=== PATIENT | male | born 1990 | race Two or more races ===

== ENCOUNTER 2022-03-28 03:18 | Emergency (ER) | payer OTHER ==
[~2022-03-28] VITALS: Ht 172.7 cm; Wt 86.2 kg
--- NOTE | 2022-03-28 03:40 | NUR ---
TO ER BED 2. BIBSELF C/O LLQ PAIN STARTED AND URINARY HESITANCY X TODAY. TOOK IBUPROFEN WITH LITTLE RELIEF. CHANGED INTO GOWN. CONNECTED TO MONITOR. AWAITING EVAL.
--- NOTE | 2022-03-28 03:45 | NUR ---
URINE SAMPLE COLLECTED AND SENT TO LAB
[2022-03-28] MEDS ORDERED: ONDANSETRON HCL/PF 4 MG/2 ML VIAL IVP ONE (04:00)
[2022-03-28] MEDS ORDERED: IV NS 0.9% 1,000 ML BAG IV ONE (04:00)
[2022-03-28] MEDS ORDERED: MORPHINE SULFATE INJ 2 MG/ML DISP.SYRIN IV ONE ×3 (04:00→11:00)
[2022-03-28] MEDS ORDERED: ONDANSETRON HCL/PF 4 MG/2 ML VIAL ONE (04:05)
[2022-03-28] MEDS ORDERED: MORPHINE SULFATE INJ 4 MG/ML DISP.SYRIN ONE ×3 (04:05→10:47)
--- NOTE | 2022-03-28 04:22 | NUR ---
IV LINE ESTABLISHED, IV LAC 18G. BLOOD COLLECTED AND SENT TO LAB
[2022-03-28 04:29] LABS: BILIRUBIN,URINE NEGATIVE (NEGATIVE); COLOR,URINE YELLOW (YELLOW); LEUKOCYTE ESTERASE ,URINE TRACE (NEGATIVE); NITRITE, URINE NEGATIVE (NEGATIVE); PH,URINE 5.5 (5.0-8.0); PROTEIN,URINE NEGATIVE (NEGATIVE); UGLUCOSE NEGATIVE (NEGATIVE); UROBILINOGEN,URINE 0.2 EU/dL (0.2)
[2022-03-28 05:08] LABS: BASOPHILS # (AUTO) 0.1 K/uL (0.0-0.2); BASOPHILS % (AUTO) 0.4 % (0.0-2.0); EOSINOPHILS % (AUTO) 1.4 % (0.0-6.0); HEMATOCRIT 41 % (39-51); HEMOGLOBIN 13.5 g/dL (13.5-17.5); LYMPHOCYTES # (AUTO) 2.2 K/uL (0.8-4.8); LYMPHOCYTES % (AUTO) 14.5 % (20.0-44.0); MEAN CORPUSCULAR HGB CONC 33 g/dl (31.0-36.0); MEAN CORPUSCULAR VOLUME 86 fL (80-96); MONOCYTES # (AUTO) 1.7 K/uL (0.1-1.30); MONOCYTES % (AUTO) 10.9 % (2.0-12.0); NEUTROPHILS # (AUTO) 11.2 K/uL (1.8-8.9); NEUTROPHILS % (AUTO) 72.8 % (43.0-81.0); PLATELET COUNT (AUTO) 441 K/uL (150-450); RED BLOOD CELL COUNT(AUTO) 4.74 MIL/uL (4.5-6.0); WHITE BLOOD COUNT (AUTO) 15.3 K/uL (4.3-11.0)
[2022-03-28 05:32] LABS: CALCIUM, SERUM 8.5 mg/dL (8.5-10.1); CREATININE 0.9 mg/dL (0.6-1.3); POTASSIUM 3.8 mmol/L (3.5-5.1)
[2022-03-28 05:39] LABS: ALBUMIN 2.8 g/dL (3.4-5.0); BILIRUBIN,TOTAL 0.2 mg/dL (0.2-1.0)
--- NOTE | 2022-03-28 06:51 | NUR ---
COVID ANTIGEN SWAB COLLECTED AND SENT TO LAB
[2022-03-28] MEDS ORDERED: PIPERACILLIN /TAZOBACTAM 3.375 G VIAL IV ONE (06:55)
[2022-03-28] MEDS ORDERED: CIPR500T5 PO (06:56)
[2022-03-28] MEDS ORDERED: PIPERACILLIN /TAZOBACTAM 3.375 G in IV D5W 50 ML IV ONE (07:00)
--- NOTE | 2022-03-28 07:12 | NUR ---
PT AMBULATED TO BATHROOM, STEADY GAIT NOTED.
--- NOTE | 2022-03-28 07:24 | NUR ---
Receved pt from tereza rn pt vandana respiration spont aand easy no pain
--- NOTE | 2022-03-28 08:06 | NUR ---
beth for telemetry bed no abdominale pain
[2022-03-28] MEDS ORDERED: METR-147 PO (08:25)
[2022-03-28 09:03] LABS: BACTERIA,URINE Moderate /HPF (None Seen); SQUAMOUS EPITHELIAL CELL,UR None Seen /HPF (None Seen); WBC,URINE 0-2 /HPF (0-3)
--- NOTE | 2022-03-28 09:20 | NUR ---
wating for Telmetery bed resting at this time
--- NOTE | 2022-03-28 10:38 | NUR ---
PT condition stable no n/v c/o lower back pain 06/25 DR. Kern aware
--- NOTE | 2022-03-28 11:18 | NUR ---
Luis davis in [facility] - 03/28/22 at 1120 by BOWEN FAXERNESTINE DOMINGO FOR EMTALA TRANSFER
--- NOTE | 2022-03-28 11:40 | NUR ---
AT BEDSIDE FOR EVAL.
--- NOTE | 2022-03-28 11:49 | NUR ---
SPOKE WITH ADRIAN FROM [facility]. REGARDING PT TRANSFER TO [facility]. WILL INFORM PT ABOUT TRANSFER. AWAITING CALL BACK FROM ACCEPTING PHYSICIAN.
--- NOTE | 2022-03-28 12:25 | NUR ---
DR SANDOVAL SPEAKING WITHH DR DILLON FROM [facility]
[2022-03-28 13:33] VITALS: BP 126/62
--- NOTE | 2022-03-28 13:35 | NUR ---
pt resting and asleepy wating for transfer room
--- NOTE | 2022-03-28 14:44 | NUR ---
PT ACCEPTED AT [facility] HOSP ROOM [address] AIDAN TIN[place]O NUMBER FOR REPORT: [phone]
--- NOTE | 2022-03-28 14:45 | NUR ---
PT WALKING OUT when he know he will be transfer to other hospitale know and walke out with h/l in his lt arm
--- NOTE | 2022-03-28 14:52 | NUR ---
SPOKED TO PT DAD THAT PT LEFT THE HOSPITAL AND ASK IF HE CAN CONTACT THE PT TO [facility]EBACK IN THE ER.
--- NOTE | 2022-03-28 14:56 | NUR ---
CALLED SISTER OF PT TP UPDATE ON PT STATUS. SISTER WAS ABLE TO CONTACT THE PT AND WAS NOTIFIED THAT THE PT IS GOING TO [facility] PER THE SISTER.
--- NOTE | 2022-03-28 14:57 | NUR ---
PER PT DAD PT WILL GO TO DIFFERENT HOSPITAL AND REFUSING TO COME BACK.
--- NOTE | 2022-03-28 14:59 | NUR ---
Patient eloped from facility. ER MD notified.
== END 2022-03-28 15:00 | disposition left against medical advice (07) ==
LOC: ER 03:29
DX: R10.32 Left lower quadrant pain (principal); Z87.19 Personal history of other diseases of the digestive system; D72.829 Elevated white blood cell count, unspecified; Z20.822 Contact with and (suspected) exposure to COVID-19; R94.8 Abnormal results of function studies of other organs and systems; Z53.20 Procedure and treatment not carried out because of patient's decision for unspecified reasons
CPT/HCPCS: 36415; 74176; 80048; 80076; 81001; 83690; 85025; 85730; 87081; 87086; 87426; 96361; 96365; 96375; 96376; 99285; C9803; J2270 ×3; J2405; J2543; J7030; J7060